=== PATIENT | female | born 1960 | race Asian ===

== ENCOUNTER → 2023-10-14 12:23 | Outpatient (CLI) | payer SELFPAY | PROVIDERS: PCP Nurse Practitioner Family; Visit Provider Nurse Practitioner Family | DX: T14.8XXA Other injury of unspecified body region, initial encounter (principal); R21 Rash and other nonspecific skin eruption | CPT/HCPCS: 87070; 87075; 87205 ==

== ENCOUNTER → 2023-10-23 09:52 | Outpatient (CLI) | payer SELFPAY | LOC: WC 09:52 | PROVIDERS: PCP Nurse Practitioner Family; Referring Provider Nurse Practitioner Family; Visit Provider Physician Assistant | DX: R21 Rash and other nonspecific skin eruption (principal) | CPT/HCPCS: 99203; 99213 ==